=== PATIENT | male | born 1990 ===

== ENCOUNTER 2017-10-11 18:01 | Emergency (ER) | payer OTHER ==
[2017-10-11 18:10] VITALS: BP 149/84; PULSE 82; RESP 18; TEMP 98.4; O2SAT 100
[2017-10-11] MEDS ORDERED: Naproxen 550 mg Tab PO STA (18:46)
[2017-10-11] MEDS ORDERED: Naproxen 550 mg Tab PO ONE (19:01)
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
--- NOTE | 2017-10-12 08:43 | RAD ---
PROCEDURE: Cervical Spine Radiographs. HISTORY: Pain. COMPARISON: None. FINDINGS: BONES: Straightening of the normal cervical lordosis. . No fracture. Dens Intact. DISC SPACES: Normal. SOFT TISSUES: Normal. No prevertebral soft tissue swelling. OTHER FINDINGS: None. IMPRESSION: Straightening of the normal cervical lordosis. Can be seen with muscle spasm and/or positioning. No fracture or subluxation
== END 2017-10-11 19:59 | disposition home or self-care (01) ==
LOC: C.ER 18:01
DX: S16.1XXA Strain of muscle, fascia and tendon at neck level, initial encounter (principal); S30.0XXA Contusion of lower back and pelvis, initial encounter; V89.2XXA Person injured in unspecified motor-vehicle accident, traffic, initial encounter